=== PATIENT | female | born 1985 | race Caucasian/White ===

== ENCOUNTER 2018-01-24 18:04 | Inpatient (IN) | payer BC ==
[2018-01-24] MEDS ORDERED: Dinoprostone* 10 MG VAG.SUPP VAGINAL ONE (18:16)
[2018-01-24] MEDS ORDERED: Penicillin G Potassium IV* 5,000,000 UNITS in NS 0.9% 100 ML* 100 ML IVPB ONE (19:53)
--- NOTE | 2018-01-24 20:03 | HP ---
General Information - General Information Maternal Age: 32 Grav: 1 Para: 0 SAB: 0 IEA: 0 Estimated Due Date: 01/18/18 Determined By: Early Ultrasound Maternal Blood Type and Rh: O Positive - Results this Serology/RPR Result: Non-Reactive Rubella Result: Immune HBsAg Result: Negative HIV Result: Negative GBS Culture Result: Positive Past Medical History Delivery History: See Records Delivery History Comment: No previous Pertinent Past Medical History: Non-Contributory Pertinent Past Surgical History: None Pertinent Family History: Non-Contributory Family History Comment: Stroke, DC - Antepartal Records Antepartal Records: Reviewed, Uncomplicated Review of Systems Constitutional: Uncomfortable CV Complaint: No Respiratory: Shortness of Breath: No Gastrointestinal: No Nausea/Vomiting, Normal Bowel Movement Genitourinary: No Dysuria, No Bleeding, No Leaking Fluid Musculoskeletal: Contractions Neurological: No Headache, No Visual Changes Movement: Normal Exam Allergies/Adverse Reactions: Allergies No Known Allergies Allergy (Verified 01/24/18 18:43) BP 121/72 T 99.0 HR 107 RR 18 O2 100 - Measurements Height: 5 ft 4 in Weight: 160 lb Weight in lbs: [id number] Body Mass Index (BMI): 27.4 Pre- Weight: 133 lb Weight Gained This : 27 lbs and 0 ozs - Exam Breast: Breast Exam Deferred CVA: No CVA Tenderness Extremities: No Edema Heart: Normal Rhythm/Heart Sounds HEENT: No Significant Findings Lungs: Clear Bilaterally Rectal: Rectal Exam Deferred Reflexes: DTR 2+, - - no clonus Thyroid: - - WNL @ entry to care - Abdominal Exam Abdomen Exam: Non-Tender, Fundal Height Consistent with Dates - Ultrasound/Biophysical Profile Ultrasound Status: Not Done Targeted Exam Findings See L&D Outpatient Visit Provider Note for Findings: N/A Estimated Weight: EFW 7.5-8lb Cervical Exam: Fingertip Effacement: 80% Station: 0 Presenting Part: Vertex Membrane Status: Intact EFM Findings - External Monitor Findings Baseline Heart Rate: 135 External Monitor Findings: Accelerations Present, No Pattern of Variable or Late Decelerations, Variability Moderate Contractions: Irregular, Mild, < 45 Seconds Contraction Frequency: q 3-6 min Assessment/Plan - Assessment IUP @ 40+6 weeks gestation for induction of labor. IBOW. No evidence metabolic acidemia. - Obstetrical Risk Factors Obstetrical Risk Factors: GBS Positive - Plan Plan: Induction, Cervical Ripening Plan Comment: Admit to L&D. PARQ discussion cervidil; patients in agreement. Monitor per protocol. Pain management as desired. Anticipate SVB - Date/Time of Admission Date of Admission: 01/24/18 Time of Admission: 19:35
--- NOTE | 2018-01-24 21:57 | PN ---
Progress Note - Progress Note Date of Service: 01/24/18 Note: S: Patient tearful and crying, stating that she is "not getting any time" between UCs, hyperventilating. O: UCs q 1-3 min, lasting up to 1 min FHT 150, Cat 1 A: Hyperstimulation of uterus No evidence metabolic acidemia P: Remove cervidil. Reassure and provide support. Patient to get in tub and we also discussed medications for pain management if she feels she is not coping.
[2018-01-24] MEDS ORDERED: Promethazine INJ(RESTRICTED)* 25 MG/ML 1 ML VIAL IV PRN (22:21)
[2018-01-24] MEDS ORDERED: Nalbuphine* 10 MG/ML 1 ML VIAL IV PRN (22:21)
--- NOTE | 2018-01-24 23:09 | PN ---
Progress Note - Progress Note Date of Service: 01/24/18 Note: S: Patient out of tub to bed, crying with O: Attempted VE but patient could not tolerate for long enough. Possibly 3-4cm?/ 100%/+1 station. A: Early labor, difficulty coping P: PARQ discussion nubain/phenergan. Patient opts for IV medication at this time , will consider epidural if she does not get adequate pain relief.
[2018-01-24 23:12] LABS: ABS Basophils 0 10^3/ul (0-0.2); ABS Eosinophils 0.1 10^3/ul (0-0.6); ABS Lymphocytes 3.7 10^3/ul (1.0-4.8); ABS Monocytes 1.2 10^3/ul (0-0.8); ABS Neutrophils 8.2 10^3/ul (1.5-7.7); ABS Nucleated RBC 0 10^3/ul; Eosinophil % 0.7 % (0-6); Hematocrit 36 % (35-47); Hemoglobin 12.4 g/dl (12.0-16.0); Mean Corpuscular HGB Conc 35 g/dl (31-36); Mean Corpuscular Hemoglobin 33 pg (27-31); Mean Corpuscular Volume 95 fL (80-97); Mean Platelet Volume 11.1 um3 (7.4-10.4); Nucleated Red Blood Cells % 0.1; Platelet Count 164 10^3/ul (150-450); Red Cell Distribution Width 12 % (10.5-15); White Blood Count 13.3 10^3/ul (3.5-10.8)
[2018-01-24] MEDS ORDERED: OBEPIDURAL* 250 ML EPIDURAL ONE (23:45)
[2018-01-25] MEDS ORDERED: Famotidine TAB* 20 MG PO PRN (00:38)
[2018-01-25] MEDS ORDERED: Sodium Citrate/Citric Acid* 15 ML UDC PO PRN (00:38)
[2018-01-25] MEDS ORDERED: Phenylephrine IV* 40 MCG/ML 10 ML SYRINGE IV PUSH PRN ×2 (00:38)
[2018-01-25] MEDS ORDERED: EPHEDrine (Pressors)* 50 MG/ML VIAL IV PUSH PRN ×2 (00:38)
[2018-01-25] MEDS ORDERED: OBEPIDURAL* 250 ML EPIDURAL SCH (01:00)
--- NOTE | 2018-01-25 05:21 | PN ---
Progress Note - Progress Note Date of Service: 01/25/18 Note: S: Comfortable with epidural, was able to sleep a little. Now feeling more pressure in her tailbone with contractions but no pain. O: SROM @ ~0345 UCs q 2-3 min FHT 135, cat 1 VSS, afebrile A: IUP @ 41 weeks, active labor No evidence metabolic acidemia P: Encourage position changes, placed left lateral with peanut ball. Anticipate SVB.
[2018-01-25] MEDS: Penicillin G Potassium IV* 2,500,000 UNITS in NS 0.9% 100 ML* 100 ML IVPB SCH ×2 (07:11→11:19)
--- NOTE | 2018-01-25 08:30 | PN ---
Progress Note - Progress Note Date of Service: 01/25/18 Note: S: Assuming care of Jaja Velasquez a 32 yo in labor s/p Cervidil for postdates ripening. She's resting comfortably in bed. Notes some mild pressure but no strong urge to push O: BP 111/58 HR 68 T 99.9 FHT 140bpm. Moderate variability. +Accels. No decels UCs q 2-3 VE: C/C/vtx +1 A: IUP at 41 weeks in active labor No evidence of metabolic acidemia P: Enc pt to not use bolus button and changed position from side lie to upright. Anticipate trial of pushing soon
[2018-01-25] MEDS ORDERED: Oxytocin in LR* 20 UNITS/1,000 ML BAG IVPB ONE (09:49)
[2018-01-25] MEDS ORDERED: Dibucaine 1% 28.35 GM TUBE ONE (12:15)
[2018-01-25] MEDS ORDERED: Witch Hazel PAD* JAR ONE (12:15)
[2018-01-25] MEDS ORDERED: Ibuprofen TAB* 600 MG ONE (12:15)
[2018-01-25] MEDS ORDERED: Witch Hazel PAD* JAR TOPICAL PRN (13:00)
[2018-01-25] MEDS ORDERED: Glycerin ADULT SUPP PR PRN (13:00)
--- NOTE | 2018-01-25 13:00 | PROCNOTE ---
[facility] OB: Delivery Note - Delivery A Date of : 01/25/18 Time of : 11:59 [place] Sex: Female Score 1 Minute: 9 Score 5 Minutes: 9 Gestational Age in Weeks and Days at Delivery: 41 Weeks and 0 Days Delivery Method: Spontaneous Vaginal Labor: Induced Did Patient attempt ?: N/A, No Previous Amniotic Fluid: Clear Estimated Blood Loss: 300 Anesthesia/Analgesia: CEI for Labor Delivered By: Christiano Parra - Nursery Level of Nursery: Regular/Bedside - Perineum Perineal Injury: Perineal Laceration, 2nd Degree Perineal Injury Comment: Repaired with 3-0 Rapide under local infiltration 1% lidocaine Perineal Repair: By Delivering Practioner - Events Delivery Events of Note: Pitocin Only After Delivery - Additional Delivery Notes Additional Delivery Notes: Pt admitted for postdates induction. Cervidil x 1 led to onset active labor including spontaneous rupture of membranes to clear fluid with expected progression to complete. Mother GBS positive and received full abx prophylaxis in labor. Length of labor 15 hours, 38 min. Pushed x 2 hours and 20 min to liveborn female. Slow controlled delivery of head. OA to FERNY. Shoulders followed easily. [place] vigorous with spontaneous cry. HR> 110bpm. Delivered to maternal abdomen. Cord clamped x 2 and cut by FOB when pulsations ceased. Spontaneous delivery intact placenta. Membranes complete. Fundus firm to massage with IV pitocin infusing. Repair as above. EBL 300mL. At time of note mother and in stable condition. Breast feeding initiated.
[2018-01-25] MEDS ORDERED: Ammonia Inhalant* 1 EA AMP ONE (14:57)
[2018-01-25] MEDS: Acetaminophen TAB* 325 MG PO PRN ×2 (15:26→20:44)
[2018-01-25] MEDS ORDERED: Simethicone TAB* 80 MG TAB.CHEW PO SCH (17:30)
[2018-01-25] MEDS: Ibuprofen TAB* 600 MG PO PRN (18:24)
[2018-01-25] MEDS: Docusate CAP* 100 MG PO SCH (20:44)
[2018-01-26] MEDS: Ibuprofen TAB* 600 MG PO PRN ×4 (00:23→21:14)
[2018-01-26] MEDS: Acetaminophen TAB* 325 MG PO PRN ×3 (04:18→17:59)
[2018-01-26 07:14] LABS: ABS Basophils 0 10^3/ul (0-0.2); ABS Eosinophils 0.1 10^3/ul (0-0.6); ABS Lymphocytes 2.8 10^3/ul (1.0-4.8); ABS Monocytes 1.3 10^3/ul (0-0.8); ABS Neutrophils 11.1 10^3/ul (1.5-7.7); ABS Nucleated RBC 0 10^3/ul; Eosinophil % 0.6 % (0-6); Hematocrit 27 % (35-47); Hemoglobin 9.3 g/dl (12.0-16.0); Lymphocyte % 18.3 % (25-47); Mean Corpuscular HGB Conc 35 g/dl (31-36); Mean Corpuscular Hemoglobin 34 pg (27-31); Mean Corpuscular Volume 96 fL (80-97); Mean Platelet Volume 10.9 um3 (7.4-10.4); Nucleated Red Blood Cells % 0; Platelet Count 122 10^3/ul (150-450); Red Blood Count 2.78 10^6/ul (4.00-5.40); Red Cell Distribution Width 12 % (10.5-15); White Blood Count 15.4 10^3/ul (3.5-10.8)
[2018-01-26] MEDS: Docusate CAP* 100 MG PO SCH ×3 (08:50→21:14)
[2018-01-26] MEDS: Ferrous Gluconate TAB* 324 MG TAB PO SCH ×2 (09:48→21:14)
[2018-01-26] MEDS: Dibucaine 1% 28.35 GM TUBE PR PRN (12:13)
[2018-01-27] MEDS: Acetaminophen TAB* 325 MG PO PRN ×2 (01:24→08:31)
[2018-01-27] MEDS: Ibuprofen TAB* 600 MG PO PRN (05:51)
[2018-01-27] MEDS: Ferrous Gluconate TAB* 324 MG TAB PO SCH (08:31)
[2018-01-27] MEDS: Docusate CAP* 100 MG PO SCH (08:31)
[2018-01-27] MEDS: Dibucaine 1% 28.35 GM TUBE PR PRN (08:31)
[2018-01-27 09:41] VITALS: BP 103/66
== END 2018-01-27 12:12 | disposition home or self-care (01) | DRG 560 ==
LOC: MCHOBOUT 18:04 → MCHOB 19:35
PROVIDERS: ADMIT Midwife; ATTEND Midwife
PROC: 3E0P7VZ Introduction of Hormone into Female Reproductive, Via Natural or Artificial Opening (ICD-10-PCS; principal; 2018-01-25)
PROC: 10E0XZZ Delivery of Products of Conception, External Approach (ICD-10-PCS; 2018-01-25)
PROC: 4A1HXCZ Monitoring of Products of Conception, Cardiac Rate, External Approach (ICD-10-PCS; 2018-01-25)
PROC: 0KQM0ZZ Repair Perineum Muscle, Open Approach (ICD-10-PCS; 2018-01-25)
DX: O48.0 Post-term pregnancy (principal); O99.824 Streptococcus B carrier state complicating childbirth; Z82.49 Family history of ischemic heart disease and other diseases of the circulatory system; Z82.3 Family history of stroke; Z3A.41 41 weeks gestation of pregnancy; Z37.0 Single live birth; O70.1 Second degree perineal laceration during delivery; O90.81 Anemia of the puerperium
CPT/HCPCS: 36415; 85025; 86850; 86900; 86901; A9270-GY; J2300; J2540; J2550

== ENCOUNTER 2020-06-23 11:23 | Inpatient (IN) ==
[2020-06-23] MEDS ORDERED: Buffered Lidocaine 1% SYRIN 1 ml INTRADERM ONE (12:42)
[2020-06-23] MEDS ORDERED: Lactated Ringers 1000 ml BAG 1,000 ML IV ONE ×2 (12:42→19:40)
[2020-06-23] MEDS ORDERED: Lactated Ringers 1000 ml BAG 1,000 ML IV SCH ×2 (13:00→20:00)
[2020-06-23 13:12] LABS: ABS Eosinophils 0.1 10^3/ul (0-0.6); ABS Lymphocytes 2.1 10^3/ul (1.0-4.8); ABS Monocytes 0.8 10^3/ul (0-0.8); ABS Neutrophils 7.3 10^3/ul (1.5-7.7); Hematocrit 33 % (35-47); Hemoglobin 11.6 g/dL (12.0-16.0); Lymphocyte % 20.4 %; Mean Corpuscular HGB Conc 36 g/dL (31-36); Mean Corpuscular Hemoglobin 33 pg (27-31); Mean Corpuscular Volume 94 fL (80-97); Mean Platelet Volume 9.9 fL (7.4-10.4); Platelet Count 193 10^3/uL (150-450); Red Blood Count 3.51 10^6 /uL (3.70-4.87); Red Cell Distribution Width 12 % (10-15); White Blood Count 10.3 10^3/uL (3.5-10.8)
[2020-06-23] MEDS: Oxytocin in LR 20 UNITS/1,000 ML BAG IVPB SCH ×2 (13:50→21:31)
[2020-06-23 13:52] LABS: Urine Benzodiazepine Screen None Detected (None Detect); Urine Cannabinoids Screen None Detected (None Detect); Urine Opiates Screen None Detected (None Detect)
[2020-06-23] MEDS ORDERED: OBEPIDURAL 250 ML EPIDURAL ONE (18:29)
[2020-06-23] MEDS ORDERED: Bupivacaine 0.25% SDV PF 10 ML VIAL INJ ONE (19:05)
[2020-06-23] MEDS ORDERED: EPHEDrine (Pressors) 50 MG/ML VIAL IV PUSH PRN (19:40)
[2020-06-23] MEDS ORDERED: Sodium Citrate/Citric Acid LIQ 15 ML UDC PO PRN (19:40)
[2020-06-23] MEDS ORDERED: Lactated Ringers 1000 ml BAG 500 ML IV PRN (19:40)
[2020-06-23] MEDS ORDERED: Phenylephrine 40 mcg/mL 10mL (400mcg) SYRINGE IV PUSH PRN (19:40)
[2020-06-23] MEDS ORDERED: OBEPIDURAL 250 ML EPIDURAL SCH (20:00)
[2020-06-23] MEDS: Lidocaine 2% JELLY 6 ML TOPICAL SCH (20:17)
[2020-06-24] MEDS ORDERED: Dibucaine 1% OINT 28.35 GM TUBE PR PRN (02:50)
[2020-06-24] MEDS ORDERED: Witch Hazel PAD JAR TOPICAL PRN (02:50)
[2020-06-24] MEDS ORDERED: Oxytocin in LR 20 UNITS/1,000 ML BAG IVPB SCH (03:00)
[2020-06-24] MEDS ORDERED: Lactated Ringers 1000 ml BAG 1,000 ML IV SCH (03:00)
[2020-06-24] MEDS ORDERED: Lidocaine 1% VIAL 10 MG/ML VIAL ONE (03:40)
[2020-06-24] MEDS: Lidocaine 2% JELLY 6 ML TOPICAL SCH ×3 (09:38→21:13)
[2020-06-25] MEDS: Lidocaine 2% JELLY 6 ML TOPICAL SCH (08:08)
[2020-06-25 08:26] VITALS: BP 97/69
[2020-06-25 09:01] LABS: ABS Eosinophils 0.1 10^3/ul (0-0.6); ABS Lymphocytes 2.3 10^3/ul (1.0-4.8); ABS Monocytes 0.9 10^3/ul (0-0.8); ABS Neutrophils 7.8 10^3/ul (1.5-7.7); Eosinophil % 0.7 %; Hematocrit 30 % (35-47); Hemoglobin 10.4 g/dL (12.0-16.0); Lymphocyte % 21.1 %; Mean Corpuscular HGB Conc 34 g/dL (31-36); Mean Corpuscular Hemoglobin 33 pg (27-31); Mean Corpuscular Volume 95 fL (80-97); Mean Platelet Volume 9.2 fL (7.4-10.4); Platelet Count 181 10^3/uL (150-450); Red Blood Count 3.18 10^6 /uL (3.70-4.87); Red Cell Distribution Width 13 % (10-15); White Blood Count 11.1 10^3/uL (3.5-10.8)
== END 2020-06-25 13:00 | disposition home or self-care (01) | DRG 560 ==
LOC: MCHOBOUT 11:23 → MCHOB 12:48
PROVIDERS: ADMIT Midwife; ATTEND Midwife